=== PATIENT | female | born 1975 | race Caucasian/White ===

== ENCOUNTER 2016-09-22 21:19 | Day surgery (SDC) | payer BC ==
[~2016-09-22] VITALS: Ht 170.2 cm; Wt 98.9 kg
[2016-09-22 22:00] LABS: HEMATOCRIT 40.4 % (36.0-46.0); MCHC 33.9 G/DL (30.0-36.0); MCV 88.6 FL (83-99); MEAN PLAT.VOLUME 8.8 uM^3 (9.5-12.4); PLATELET COUNT 283 K/uL (156-360); RBC DIS.WIDTH-CV 12.5 % (11.8-14.6); RBC DIS.WIDTH-SD 40.9 % (39-53); RED BLOOD COUNT 4.56 M/uL (3.80-5.20); WHITE BLOOD COUNT 14.8 K/uL (4.1-10.2)
[2016-09-22 22:09] LABS: CHLORIDE 104 mEq/L (99-109); POTASSIUM 3.5 mEq/L (3.7-5.4); SODIUM 137 mEq/L (136-147)
[2016-09-22 22:12] LABS: GLUCOSE 98 mg/dL (70-99)
[2016-09-22 22:13] LABS: ANION GAP 12 MEQ/L (2-14); TOTAL BILIRUBIN 0.5 mg/dL (0.0-1.0)
[2016-09-22 22:15] LABS: ALKALINE PHOSPHATASE 61 IU/L (3-129); GFR ESTIMATE (CALCULATED) > 59 mL/min/
[2016-09-22 22:16] LABS: UREA NITROGEN (BUN) 11 mg/dL (9-23)
[2016-09-22 22:24] LABS: QUANTITATIVE HCG < 4.0 MIU/ML
[2016-09-22] MEDS ORDERED: ZOVIA 1-50E1 EACH PO (22:31)
[2016-09-22] MEDS ORDERED: OMEPRAZOLE40 M1 PO (22:31)
[2016-09-22] MEDS ORDERED: ZYRTEC10 M2 PO (22:32)
[2016-09-22] MEDS ORDERED: LORATADINE10 M2 PO (22:32)
[2016-09-22] MEDS ORDERED: ZANTAC150 MG PO (22:32)
[2016-09-22] MEDS ORDERED: VITAMIN D31000 UNIT PO (22:33)
[2016-09-22] MEDS ORDERED: ASCORBIC ACID500 M3 PO (22:33)
[2016-09-22 22:44] LABS: ADD MIUA? YES; BILIRUBIN NEGATIVE; BLOOD SMALL; COLOR YELLOW ((YELLOW)); GLUCOSE (STRIP) NEGATIVE; KETONES 20; LEUKOCYTES TRACE; NITRITE NEGATIVE; PROTEIN (STRIP) NEGATIVE; SPECIFIC GRAVITY 1.012 (1.000-1.030); UROBILINOGEN 0.2 MG/DL (0.2-1.0)
[2016-09-22 22:48] LABS: BACTERIA RARE /HPF; EPITHELIAL CELLS 1+ /HPF; MUCUS TRACE /LPF; RED BLOOD CELLS 0-5 /HPF (0-5); UCUL ADDED? NO; WHITE BLOOD CELLS 0-5 /HPF (0-5)
[2016-09-22 22:50] LABS: LIPASE 11 U/L (1.0-51.0)
[2016-09-23 08:21] VITALS: BP 128/84
[2016-09-23 09:58] VITALS: BP 136/95
[2016-09-23 15:30] VITALS: BP 134/79
[2016-09-23] MEDS ORDERED: OXYCODONE HCL5 MG PO (18:00)
[2016-09-23 18:35] VITALS: BP 125/78
[2016-09-23 20:24] VITALS: BP 134/80
== END 2016-09-23 20:40 | disposition home or self-care (01) ==
LOC: EME 21:19 → SDC 09-23 02:33 → EME 09-23 02:33 → 2SOUTH 09-23 03:19
PROC: 0DTJ4ZZ Resection of Appendix, Percutaneous Endoscopic Approach (ICD-10-PCS; principal; 2016-09-23)
DX: K35.80 Unspecified acute appendicitis (principal); L40.50 Arthropathic psoriasis, unspecified; K21.9 Gastro-esophageal reflux disease without esophagitis; R11.2 Nausea with vomiting, unspecified; Z88.0 Allergy status to penicillin
CPT/HCPCS: 74177; 76705; 80053; 81003; 83690; 84702; 85027; 88304; 93005; 99281; 99285; G0378; J0330; J1170; J1650; J2250; J2270; J2405; J2765; J3010; J7030